=== PATIENT | female | born 1940 | race Caucasian/White ===

== ENCOUNTER 2023-11-23 05:44 | Day surgery (SDC) | payer OTHER ==
[~2023-11-23] VITALS: Ht 121.9 cm; Wt 57.2 kg
[~2023-11-23 05:44] MED LIST: CYCLOPENTOLATE HCL 1% 2 ML OPHTHALMIC SOLUTION ONE; FentaNYL CITRATE PF 100 MCG/2 ML VIAL ONE; KETOROLAC TROMETHAMINE 0.5% 5 ML OPHTHALMIC SOLUTION ONE; MIDAZOLAM HCL 2 MG/2 ML VIAL ONE; MOXIFLOXACIN HCL 0.5% 3 ML OPHTHALMIC SOLUTION ONE; PHENYLEPHRINE HCL 2.5% 2 ML OPHTHALMIC SOLUTION ONE; RINGERS SOLUTION,LACTATED 500 ML IV ONE; TETRACAINE HCL/PF 0.5% 4 ML OPHTHALMIC SOLUTION ONE; TROPICAMIDE 1% 2 ML OPHTHALMIC SOLUTION ONE
[2023-11-23] MEDS ORDERED: PROPARACAINE HCL 0.5% 15 ML OPHTHALMIC SOLUTION ONE (06:39)
[2023-11-23] MEDS: KETOROLAC TROMETHAMINE 0.5% 5 ML OPHTHALMIC SOLUTION OD SCH (06:50)
[2023-11-23] MEDS: TROPICAMIDE 1% 2 ML OPHTHALMIC SOLUTION OD SCH (06:51)
[2023-11-23] MEDS: PROPARACAINE HCL 0.5% 15 ML OPHTHALMIC SOLUTION OD ONE (06:51)
[2023-11-23] MEDS: CYCLOPENTOLATE HCL 1% 2 ML OPHTHALMIC SOLUTION OD SCH (06:51)
[2023-11-23] MEDS ORDERED: TETRACAINE HCL/PF 0.5% 4 ML OPHTHALMIC SOLUTION ONE ×3 (06:51→12:00)
[2023-11-23] MEDS ORDERED: DOCU100T PO (06:52)
[2023-11-23] MEDS ORDERED: MONT-35 PO (06:52)
[2023-11-23] MEDS ORDERED: BISA-151 PO (06:52)
[2023-11-23] MEDS ORDERED: FLUT1BLS15 IH (06:52)
[2023-11-23] MEDS ORDERED: FAMO20 PO (06:52)
[2023-11-23] MEDS: MOXIFLOXACIN HCL 0.5% 3 ML OPHTHALMIC SOLUTION OD SCH (06:52)
[2023-11-23] MEDS ORDERED: LINA72CA PO (06:52)
[2023-11-23] MEDS ORDERED: FLUT16SP NASAL (06:52)
[2023-11-23] MEDS ORDERED: CETI-450 PO (06:52)
[2023-11-23] MEDS ORDERED: ALBU18HF12 IH (06:52)
[2023-11-23] MEDS: TETRACAINE HCL/PF 0.5% 4 ML OPHTHALMIC SOLUTION OD SCH (06:52)
[2023-11-23] MEDS: PHENYLEPHRINE HCL 2.5% 2 ML OPHTHALMIC SOLUTION OD SCH (06:52)
[2023-11-23] MEDS ORDERED: NEOMYCIN/POLYMYXIN B/DEXAMETH 3.5 GM OPHTHALMIC OINTMENT ONE ×2 (06:54→12:00)
[2023-11-23] MEDS ORDERED: KETOROLAC TROMETHAMINE 0.5% 5 ML OPHTHALMIC SOLUTION ONE (07:06)
[2023-11-23] MEDS ORDERED: TROPICAMIDE 1% 2 ML OPHTHALMIC SOLUTION ONE (07:07)
[2023-11-23] MEDS ORDERED: PHENYLEPHRINE HCL 2.5% 2 ML OPHTHALMIC SOLUTION ONE (07:07)
[2023-11-23] MEDS ORDERED: MOXIFLOXACIN HCL 0.5% 3 ML OPHTHALMIC SOLUTION ONE ×2 (07:07→12:00)
[2023-11-23] MEDS ORDERED: CYCLOPENTOLATE HCL 1% 2 ML OPHTHALMIC SOLUTION ONE (07:07)
[2023-11-23] MEDS: RINGERS SOLUTION,LACTATED 500 ML IV ONE (07:54)
[2023-11-23] MEDS ORDERED: PrednisoLONE ACETATE 1% 5 ML OPHTHALMIC SUSPENSION ONE ×2 (08:51→12:00)
[2023-11-23] MEDS: BALANCED SALT 15 ML OPHTHALMIC IRRIG.SOLN ONE (10:52)
[2023-11-23] MEDS: EPINEPHrine 1:1,000 [1 MG/ML] VIAL ONE (10:53)
[2023-11-23] MEDS: LIDOCAINE/PF 1% 2 ML VIAL ONE (10:54)
[2023-11-23] MEDS: POVIDONE-IODINE 5% 30 ML OPHTHALMIC SOLUTION ONE (10:55)
[2023-11-23] MEDS: TETRACAINE HCL/PF 0.5% 4 ML OPHTHALMIC SOLUTION OD ONE (10:56)
[2023-11-23] MEDS ORDERED: HYALURONATE SOD 8.5MG/0.85ML 10 MG/ML SYRINGE IO ONE (12:00)
[2023-11-23] MEDS ORDERED: BALANCED SALT 15 ML OPHTHALMIC IRRIG.SOLN ONE (12:00)
[2023-11-23] MEDS ORDERED: LIDOCAINE/PF 1% 2 ML VIAL ONE (12:00)
[2023-11-23] MEDS ORDERED: EPINEPHrine 1:1,000 [1 MG/ML] VIAL ONE (12:00)
[2023-11-23] MEDS ORDERED: POVIDONE-IODINE 5% 30 ML OPHTHALMIC SOLUTION ONE (12:00)
== END 2023-11-23 10:35 | disposition home or self-care (01) ==
LOC: SURGERY 05:44
PROVIDERS: ATTEND Ophthalmology
DX: E11.36 Type 2 diabetes mellitus with diabetic cataract (principal); H25.11 Age-related nuclear cataract, right eye; E11.9 Type 2 diabetes mellitus without complications; E78.00 Pure hypercholesterolemia, unspecified; J45.909 Unspecified asthma, uncomplicated; Z90.49 Acquired absence of other specified parts of digestive tract; Z90.710 Acquired absence of both cervix and uterus
CPT/HCPCS: 66982; J0171; J3010; J3490; J2250; J7120; V2632